=== PATIENT | female | born 1975 | race Caucasian/White ===

== ENCOUNTER 2024-02-23 06:53 | Day surgery (SDC) | payer OTHER, SELFPAY ==
--- NOTE | 2024-02-21 08:25 | HPS.HSE ---
Family Physician
-
Family Physician: Chloe Ruth
Chief Complaint
-
Mitotically Active Leiomyoma
History of Present Illness
48�year�old��[place]�Chinese�woman�reported�over�the�last�year�with�abnormal�bleeding.�Evaluation�by�her�Supervisor Files�Dr�Arnulfo Cadet�included�US�and�labs.�She�was�also�noted�to�have�symptomatic�anemia,�was�given�iron�po.�US�pelvis�done�in�09/2023
shows�uterus�to�be�10.3x5.5x4.9�cm.�endometrium�is�thick�at�20�mm.�submucosal�fibroid�is�seen�anterior�aspect�of�upper endometrium�1.8x1.7�cm,�3.7�cm�fundal�fibroid�is�seen,�third�mass�is�noted�within�endometrium�2.6�cm.�ROV�is�3.2�cm,�looks
normal,�SARAY�is�3.4�cm�and�looks�normal.�No�fluid�is�seen�in�cul�de�sac.� D&C�hysteroscopy�was�performed,�pathology�shows�secretory�endometrium�with�mild�chronic�endometritis�with�focal�breakdown,
there�is�fragments�of�smooth�muscle�tissue�consistent�with�leiomyoma.�There�is�focally�increased�mitotic�activity�up�to�8�mitoses per�10�high�power�field�which�may�be�suggestive�of�mitotically�active�leiomyoma.
PMH�is�only�significant�for�anemia,�hypothyroidism PSH�Breast�implants,�surgery�on�right�fifth�digit�/reconstruction/bone�graft�(electrocuted�as�child)� Family�hx�is�negative�for�cancer
denies�any�tabacco,�drugs,�marijuana,�reposrts�social�drinking
Medical History
Past Medical History
Past Medical History: Reports Hypothyroidism
Past Surgical History: Reports Other
Additional Past Surgical History:
breast implant
Social History
Tobacco: Non-smoker
Alcohol: None
Family History
Family History: Not pertinent
Allergies / Home Medications
Allergies reflects when Allergies were last updated in [facility].
Home Medications with original date entered in [facility]
Allergy/Medication List:
NKDA
Review of Systems
-
A 12 point ROS was completed and negative except as noted: Yes
Physical Exam
Vital Signs
Physical�Exam Pelvic�Examination: External�normal�labia,�urethra,�anus.� Vagina:�Normal�mucosa. Cervix:�normal�appearance,�no�discharge.� Uterus:�enlarged�at�12�weeks�size. Adnexa:�No�pelvic�mass.� RVE:�no�masses�or�nodularity
General:�Well�developed,�well�nourished�patient.�In�no�acute�distress. Head:�Atraumatic�and�normocephalic. Eyes:�EOMI.�Sclerae�are�anicteric. Ears,�Nose,�Throat,�and�Mouth:�Normal�oral�mucosa�and�oropharynx.
Neck:�No�thyromegaly.�No�cervical�lymphadenopathy. Lungs:�Clear�to�auscultation.�Good�air�movement�bilaterally. Cardiac:�Regular�rate.�Regular�rhythm.�No�murmurs�appreciated. Right�Breast:�No�masses�or�dimpling.�No�changes. Fingerman
Left�Breast:�No�changes.�No�masses�or�dimpling. Abdomen:�Abdomen�is�soft.�Non�tender�to�palpation.�Non�distended. Extremities:�No�edema. Hematologic/Lymphatic:�No�palpable�lymphadenopathy.
Musculoskeletal:�Normal�range�of�motion.�Strength�and�Tone�are�normal. Skin:Non�jaundiced.�No�petechia.�No�purpura. Neurologic:�Speech�is�fluent.�Normal�gait�and�station.�Cranial�nerves�intact.
Physical Exam
General: Well Developed
Data Reviewed
-
Diagnostic Radiology: Image Personally Visualized and interpreted
CT Scan: Other (CT CHEST/ABDOMEN/PELVIS W CONTRAST CLINICAL INDICATION: Female, 48 years old, d39.0 d25.9; D39.0-Neoplasm of uncertain behavior of uterus; D25.9-Leiomyoma of uterus, unspecified TECHNIQUE: CT of the chest, abdomen and pelvis was
performed, following the administration of contrast, as per [facility])
Impression/Plan
-
IMPRESSION:48�yo�woman�with�abnormal�bleeding�due�to�fibroid,�likely�due�to�submucosal�nature.�However�she�aslo�has�abnormal�smooth
muscle�neoplasm�with�increased�mitosis.�I�explained�to�her�variety�of�types�of�neoplasms�arising�from�Fibroids,�including�cellular
leiomyoma,�atypical,�Bizarre,�STUMP�and�Leiomyosarcoma.�Baseed�on�limited�tissue�sampled�only�increased�mitosis�is�noted. she�may�have�additional�worrisome�features�including�necrosis�or�atypia.�I�recommed�Hysterectomy�and�not�myomectomy�given
age�of�48.�
Planning�for�Robotic�TLH�BS,�she�wants�to�delay�into�early�May. Risk�discussed�including�infection�bleeding,�injury�to�adjacent�organs,�DVT/PE,�CV�complication�discussed.�
PLAN:
[2024-02-23] VITALS (9 sets, daily range): BP systolic 93–110; BP diastolic 45–82; BMI 25.7
[2024-02-23] MEDS: NEURONTIN 300 MG PO (08:38)
[2024-02-23] MEDS: TYLENOL 1000 MG PO (08:38)
[2024-02-23] MEDS: CELEBREX 200 MG PO (08:38)
[2024-02-23] MEDS: NORMOSOL-R 1000 IV (08:39)
[2024-02-23] MEDS: HEPARIN 5000 UNITS SC (08:56)
[2024-02-23] MEDS: DILAUDID 0.25 MG IV (12:09)
--- NOTE | 2024-02-23 12:19 | OR.RPT ---
Operative Report
Operative Report
Preoperative diagnosis: Mitotically active leiomyoma
Postoperative diagnosis, same pending final pathology, bilateral ovarian cysts
Procedure robotic assisted total laparoscopic hysterectomy greater than 250 g, left salpingo-oophorectomy, right salpingectomy and right ovarian cystectomy and pelvic washings
Surgeon German Vivas
[employer]ished [employer]s Stock Clerk Jo Cuellar, PAC, [place]
Anesthesia: General plus tap block
Estimated blood loss 100 cc
Complications none
Specimens uterus and cervix, pelvic washings, left tube and ovary, right fallopian tube, right ovarian cyst
Procedure in detail this patient was taken to the operating room for definitive management of mitotically active leiomyoma status post prior hysteroscopic myomectomy. She was placed in lithotomy position after induction of anesthesia and
intubation, tap block was performed by anesthesia team. She was prepped and draped in the abdomen and perineum and vagina. Hallman catheter was placed under sterile conditions. Uterine manipulator coal dumping equipment operator type with a 4 cm AMY ring was placed in
the uterus that sounded to approximately 12 cm. Next the patient was draped timeout procedure had been completed and she received Ancef and Flagyl and had received heparin in the preop area. Veress needle was inserted in the umbilicus and
pneumoperitoneum was accomplished to 15 mmHg. 8 mm excised robotic ports were placed 25 cm cephalad to symphysis pubis as well as right and left upper quadrants as well as right and left lateral abdomen. The patient was placed in lithotomy
position. Survey of the abdomen reveals upper abdomen including liver spleen diaphragms right and left paracolic gutters to be within normal limits omentum is unremarkable. The uterus is enlarged with multiple masses that appear to be leiomyoma,
the right tube and ovary has a hemorrhagic cyst, the left ovary has a multicystic neoplasm probably benign as it is smooth in nature. Fallopian tubes were unremarkable and there were no pelvic peritoneal implants. Appendix was visualized and was
generally normal. Right and left round ligaments were sealed and divided. Washings were collected in the pelvis. Anterior and posterior leaves of the broad ligament were dissected open, the ureter was identified in the retroperitoneum bilaterally
and kept out of harm's way during the remainder of the surgery. The left IP ligament was sealed and divided the attachments of the tube and ovary to the uterus were sealed and divided and tube and ovary on the left side was placed in a bag for
retrieval. Bladder flap was sharply developed and advanced below the cervicovaginal junction. Right fallopian tube was removed, and submitted to pathology. The right ovary had a hemorrhagic cyst which was excised and good hemostasis was obtained
and this was submitted to pathology. A window was created between IP ligaments and right ureter and the ovarian attachments to the uterus were sealed and divided. Uterine arteries were skeletonized. They were bilaterally sealed 3 times and
divided circumferential incision was made over the AMY ring, the specimen was completely detached. The uterine manipulator was removed. The uterus was placed in an endoscopic bag which was introduced through the vagina and then was removed within
the bag without any disruption. Separately the left tube and ovary was removed. Next the vaginal apices were closed using a [id number] suture of 0 Vicryl incorporating uterosacral ligaments. Next V-Loc suture was used to close the vaginal
cuff in 2 layers. We irrigated copiously and there was no evidence of bleeding good hemostasis was present. All laps and instruments were removed and robotic system was undocked. There was no necessity to close fascia and we proceeded to closure
of the skin with 4-0 Monocryl in a subcuticular fashion skin glue was applied to all incisions. The vagina was inspected and there was no evidence of lacerations. Hallman catheter was removed. We went ahead and awakened the patient and she returned
back to recovery room stable awake and extubated condition. Counts of laps instruments and needle was correct x 2. I was present and scrubbed for entire procedure as dictated above.
== END 2024-02-23 13:50 | disposition home or self-care (01) ==
LOC: SDS 06:53
PROVIDERS: ATTENDING PHYSICIAN Obstetrics & Gynecology Gynecologic Oncology; FAMILY PHYSICIAN Family Medicine
DX: D25.9 Leiomyoma of uterus, unspecified (principal); N80.03 Adenomyosis of the uterus; N83.202 Unspecified ovarian cyst, left side; N83.201 Unspecified ovarian cyst, right side; N83.8 Other noninflammatory disorders of ovary, fallopian tube and broad ligament; N85.8 Other specified noninflammatory disorders of uterus
CPT/HCPCS: 58573; 58662; 88302; 88305; 88307; 86850; 86900; 86901; 88112; 88341; 88342